=== PATIENT | female | born 1935 | race Two or more races ===

== ENCOUNTER 2016-04-07 12:45 | Outpatient (CLI) | payer MEDICARE, MEDICAID | END 2016-04-07 23:59 | disposition home or self-care (01) | LOC: VASLAB 12:45 | PROVIDERS: ATTEND Surgery Vascular Surgery | DX: Z48.812 Encounter for surgical aftercare following surgery on the circulatory system (principal); I87.2 Venous insufficiency (chronic) (peripheral) | CPT/HCPCS: G0463 ==

== ENCOUNTER 2016-04-14 12:34 | Outpatient (CLI) | payer MEDICARE, MEDICAID ==
[2016-04-14] MEDS ORDERED: DEXAMETHASONE SOD PHOSPHATE 4 MG/ML VIAL IV ONE (14:30)
[2016-04-14] MEDS ORDERED: BUPIVACAINE 0.5 % PF 150 MG/30 ML VIAL MC ONE (14:30)
[2016-04-14] MEDS ORDERED: ETHYL CHLORIDE SPRAY 1 EA BOTTLE TP ONE (14:30)
== END 2016-04-14 23:59 | disposition home or self-care (01) ==
LOC: WOU 12:34
PROVIDERS: ATTEND Podiatrist Foot & Ankle Surgery
PROC: 3E0U33Z Introduction of Anti-inflammatory into Joints, Percutaneous Approach (ICD-10-PCS; principal; 2016-04-14)
PROC: 3E0U3NZ Introduction of Analgesics, Hypnotics, Sedatives into Joints, Percutaneous Approach (ICD-10-PCS; principal; 2016-04-14)
DX: M25.571 Pain in right ankle and joints of right foot (principal); I83.893 Varicose veins of bilateral lower extremities with other complications; E11.9 Type 2 diabetes mellitus without complications; B35.1 Tinea unguium
CPT/HCPCS: 20605; J1100; J3490

== ENCOUNTER 2016-05-05 10:59 | Outpatient (CLI) | payer MEDICARE, MEDICAID | END 2016-05-05 23:59 | disposition home or self-care (01) | LOC: WOU 10:59 | PROVIDERS: ATTEND Podiatrist Foot & Ankle Surgery | DX: I83.893 Varicose veins of bilateral lower extremities with other complications (principal); M21.42 Flat foot [pes planus] (acquired), left foot; M21.41 Flat foot [pes planus] (acquired), right foot; M21.072 Valgus deformity, not elsewhere classified, left ankle; M21.071 Valgus deformity, not elsewhere classified, right ankle | CPT/HCPCS: G0463 ==

== ENCOUNTER 2016-06-23 11:30 | Outpatient (CLI) | payer MEDICARE, OTHER | END 2016-06-23 23:59 | disposition home or self-care (01) | LOC: WOU 11:30 | PROVIDERS: ATTEND Podiatrist Foot & Ankle Surgery | DX: Z09 Encounter for follow-up examination after completed treatment for conditions other than malignant neoplasm (principal); E11.40 Type 2 diabetes mellitus with diabetic neuropathy, unspecified; B35.1 Tinea unguium; M19.90 Unspecified osteoarthritis, unspecified site; I87.8 Other specified disorders of veins; G20 Parkinson's disease | CPT/HCPCS: G0463 ==

== ENCOUNTER 2016-09-01 10:50 | Outpatient (CLI) | payer MEDICARE, OTHER | END 2016-09-01 23:59 | disposition home or self-care (01) | LOC: WOU 10:50 | PROVIDERS: ATTEND Podiatrist Foot & Ankle Surgery | DX: Z09 Encounter for follow-up examination after completed treatment for conditions other than malignant neoplasm (principal); I80.3 Phlebitis and thrombophlebitis of lower extremities, unspecified; I83.891 Varicose veins of right lower extremity with other complications; E11.9 Type 2 diabetes mellitus without complications; Z79.84 Long term (current) use of oral hypoglycemic drugs | CPT/HCPCS: A6402; G0463 ==

== ENCOUNTER 2016-09-02 08:23 | Outpatient (CLI) | payer MEDICARE, OTHER | END 2016-09-02 23:59 | disposition home or self-care (01) | LOC: WOU 08:23 | PROVIDERS: ATTEND Specialist | DX: E11.628 Type 2 diabetes mellitus with other skin complications (principal); L02.413 Cutaneous abscess of right upper limb; I83.891 Varicose veins of right lower extremity with other complications; G20 Parkinson's disease; Z79.84 Long term (current) use of oral hypoglycemic drugs; Z79.899 Other long term (current) drug therapy | CPT/HCPCS: 11042; A6209; A6402; J3490 ==

== ENCOUNTER 2016-09-09 09:08 | Outpatient (CLI) | payer MEDICARE, OTHER | END 2016-09-09 23:59 | disposition home or self-care (01) | LOC: WOU 09:08 | PROVIDERS: ATTEND Specialist | DX: E11.628 Type 2 diabetes mellitus with other skin complications (principal); L02.413 Cutaneous abscess of right upper limb; G20 Parkinson's disease; I10 Essential (primary) hypertension; Z79.84 Long term (current) use of oral hypoglycemic drugs; Z79.899 Other long term (current) drug therapy | CPT/HCPCS: A6209; A6402; G0463 ==

== ENCOUNTER → 2016-09-15 | Outpatient (CLI) | payer MEDICARE, OTHER | END | disposition home or self-care (01) | LOC: WOU 10:57 | PROVIDERS: ATTEND Podiatrist Foot & Ankle Surgery | DX: L90.9 Atrophic disorder of skin, unspecified (principal); E11.628 Type 2 diabetes mellitus with other skin complications; I80.9 Phlebitis and thrombophlebitis of unspecified site; E11.51 Type 2 diabetes mellitus with diabetic peripheral angiopathy without gangrene; I83.811 Varicose veins of right lower extremity with pain; G20 Parkinson's disease; I10 Essential (primary) hypertension | CPT/HCPCS: A6402; G0463 ==

== ENCOUNTER 2016-09-16 09:03 | Outpatient (CLI) | payer MEDICARE, OTHER | END 2016-09-16 23:59 | disposition home or self-care (01) | LOC: WOU 09:03 | PROVIDERS: ATTEND Specialist | DX: E11.628 Type 2 diabetes mellitus with other skin complications (principal); G20 Parkinson's disease; I10 Essential (primary) hypertension; Z83.3 Family history of diabetes mellitus; Z82.49 Family history of ischemic heart disease and other diseases of the circulatory system | CPT/HCPCS: G0463 ==

== ENCOUNTER 2016-10-06 10:50 | Outpatient (CLI) | payer MEDICARE, OTHER | END 2016-10-06 23:59 | disposition home or self-care (01) | LOC: WOU 10:50 | PROVIDERS: ATTEND Podiatrist Foot & Ankle Surgery | DX: E11.622 Type 2 diabetes mellitus with other skin ulcer (principal); L97.311 Non-pressure chronic ulcer of right ankle limited to breakdown of skin; I83.893 Varicose veins of bilateral lower extremities with other complications; Z79.84 Long term (current) use of oral hypoglycemic drugs; Z79.899 Other long term (current) drug therapy | CPT/HCPCS: 11042; A6209; A6402 ==

== ENCOUNTER 2016-10-13 09:23 | Outpatient (CLI) | payer MEDICARE, OTHER ==
[2016-10-14] MEDS ORDERED: hydrALAZINE HCL IV 20 MG VIAL ONE (09:07)
== END 2016-10-13 23:59 | disposition home or self-care (01) ==
LOC: WOU 09:23
PROVIDERS: ATTEND Podiatrist Foot & Ankle Surgery
DX: E11.622 Type 2 diabetes mellitus with other skin ulcer (principal); L97.311 Non-pressure chronic ulcer of right ankle limited to breakdown of skin; I83.893 Varicose veins of bilateral lower extremities with other complications; Z79.84 Long term (current) use of oral hypoglycemic drugs; Z79.899 Other long term (current) drug therapy
CPT/HCPCS: 11042; A6209; A6402; J0360

== ENCOUNTER 2016-10-20 09:57 | Outpatient (CLI) | payer MEDICARE, OTHER | END 2016-10-20 23:59 | disposition home or self-care (01) | LOC: WOU 09:57 | PROVIDERS: ATTEND Podiatrist Foot & Ankle Surgery | DX: E11.51 Type 2 diabetes mellitus with diabetic peripheral angiopathy without gangrene (principal); E11.622 Type 2 diabetes mellitus with other skin ulcer; I83.013 Varicose veins of right lower extremity with ulcer of ankle; L97.311 Non-pressure chronic ulcer of right ankle limited to breakdown of skin; M21.071 Valgus deformity, not elsewhere classified, right ankle; I83.891 Varicose veins of right lower extremity with other complications; Z79.84 Long term (current) use of oral hypoglycemic drugs; Z79.899 Other long term (current) drug therapy | CPT/HCPCS: 11042; A6402 ==

== ENCOUNTER 2016-10-27 09:25 | Outpatient (CLI) | payer MEDICARE, OTHER | END 2016-10-27 23:59 | disposition home or self-care (01) | DX: I83.213 Varicose veins of right lower extremity with both ulcer of ankle and inflammation (principal); E11.622 Type 2 diabetes mellitus with other skin ulcer; L97.313 Non-pressure chronic ulcer of right ankle with necrosis of muscle; L02.413 Cutaneous abscess of right upper limb; E11.628 Type 2 diabetes mellitus with other skin complications; M21.071 Valgus deformity, not elsewhere classified, right ankle; L03.115 Cellulitis of right lower limb; E11.51 Type 2 diabetes mellitus with diabetic peripheral angiopathy without gangrene; Z79.84 Long term (current) use of oral hypoglycemic drugs; Z79.899 Other long term (current) drug therapy | CPT/HCPCS: 11043; 87070; 87075; 87077; A6402 ==

== ENCOUNTER 2016-11-03 09:20 | Outpatient (CLI) | payer MEDICARE, OTHER ==
[2016-11-03] MEDS ORDERED: PANT40TA2 PO (11:20)
[2016-11-03] MEDS ORDERED: METF500T4 PO (11:20)
[2016-11-03] MEDS ORDERED: AMLO5TAB2 PO (11:20)
[2016-11-03] MEDS ORDERED: APIX5TAB PO (11:20)
[2016-11-03] MEDS ORDERED: HYDR-552 PO (11:20)
[2016-11-03] MEDS ORDERED: FURO-145 PO ×2 (11:20)
[2016-11-03] MEDS ORDERED: DIGO125T PO (11:20)
[2016-11-03] MEDS ORDERED: BENA10TA2 PO (11:20)
[2016-11-03] MEDS ORDERED: METO-306 PO (11:20)
== END 2016-11-03 23:59 | disposition home or self-care (01) ==
LOC: WOU 09:20
PROVIDERS: ATTEND Podiatrist Foot & Ankle Surgery
DX: E11.51 Type 2 diabetes mellitus with diabetic peripheral angiopathy without gangrene (principal); E11.621 Type 2 diabetes mellitus with foot ulcer; L97.311 Non-pressure chronic ulcer of right ankle limited to breakdown of skin; I83.213 Varicose veins of right lower extremity with both ulcer of ankle and inflammation; M21.071 Valgus deformity, not elsewhere classified, right ankle; L03.115 Cellulitis of right lower limb; R11.2 Nausea with vomiting, unspecified; Z79.84 Long term (current) use of oral hypoglycemic drugs; Z79.899 Other long term (current) drug therapy
CPT/HCPCS: 82962; A6402; G0463

== ENCOUNTER 2016-11-03 10:29 | Inpatient (IN) | payer MEDICARE, OTHER ==
[~2016-11-03] VITALS: Ht 144.8 cm; Wt 70.3 kg
--- NOTE | 2016-11-03 07:30 | NUR ---
RECEIVED PT. AM AWAKE AND ORIENTED X1.NON VERBAL. IV INFUSING.APPEARS COMFORTABLE.
[2016-11-03] MEDS ORDERED: ONDANSETRON HCL/PF 4 MG/2 ML VIAL ONE (10:55)
[2016-11-03] MEDS ORDERED: ONDANSETRON HCL/PF 4 MG/2 ML VIAL IVP ONE (11:00)
[2016-11-03] MEDS ORDERED: IV NS 0.9% 1,000 ML BAG IV ONE (11:00)
[2016-11-03] MEDS ORDERED: VANCOMYCIN 1 GM in IV D5W 250 ML IV ONE (11:00)
[2016-11-03 11:18] LABS: BASOPHILS % (AUTO) 0.1 % (0.0-2.0); EOSINOPHILS % (AUTO) 0.1 % (0.0-6.0); HEMATOCRIT 47 % (33-45); HEMOGLOBIN 14.8 g/dL (11.5-14.8); LYMPHOCYTES # (AUTO) 0.8 /CMM (0.8-4.8); LYMPHOCYTES % (AUTO) 5.2 % (20.0-44.0); MEAN CORPUSCULAR HEMOGLOBIN 26 PG (26.0-33.0); MEAN CORPUSCULAR HGB CONC 31 g/dl (31.0-36.0); MEAN CORPUSCULAR VOLUME 82 fL (82-100); MONOCYTES # (AUTO) 0.9 /CMM (0.1-1.30); MONOCYTES % (AUTO) 6.1 % (2.0-12.0); NEUTROPHILS # (AUTO) 12.9 /CMM (1.8-8.9); NEUTROPHILS % (AUTO) 88.5 % (43.0-81.0); PLATELET COUNT (AUTO) 210 /CMM (150-450); RDW COEFFICIENT OF VARIATION 16.6 (11.5-15.0); RED BLOOD CELL COUNT(AUTO) 5.78 MIL/uL (4.0-5.2); WHITE BLOOD COUNT (AUTO) 14.6 K/uL (4.3-11.0)
[2016-11-03] MEDS ORDERED: FURO-145 PO ×2 (11:20)
[2016-11-03] MEDS ORDERED: METO-306 PO (11:20)
[2016-11-03] MEDS ORDERED: PANT40TA2 PO (11:20)
[2016-11-03] MEDS ORDERED: METF500T4 PO (11:20)
[2016-11-03] MEDS ORDERED: AMLO5TAB2 PO (11:20)
[2016-11-03] MEDS ORDERED: BENA10TA2 PO (11:20)
[2016-11-03] MEDS ORDERED: HYDR-552 PO (11:20)
[2016-11-03] MEDS ORDERED: APIX5TAB PO (11:20)
[2016-11-03] MEDS ORDERED: DIGO125T PO (11:20)
[2016-11-03 11:35] LABS: ALANINE AMINOTRANSFERASE 26 U/L (12-78); ALBUMIN 4.3 g/dL (3.4-5.0); ALKALINE PHOSPHATASE 99 U/L (46-116); ASPARTATE AMINOTRANSFERASE 41 U/L (15-37); BILIRUBIN,DIRECT 0.3 mg/dL (0.0-0.2); BILIRUBIN,TOTAL 1.4 mg/dL (0.2-1.0); CALCIUM, SERUM 9.8 mg/dL (8.5-10.1); CARBON DIOXIDE 27 mmol/L (21-32); CHLORIDE 95 mmol/L (98-107); CREATININE 0.9 mg/dL (0.6-1.3); GLUCOSE 141 mg/dL (74-106); INR 1.06 (0.87-1.13); POTASSIUM 4.4 mmol/L (3.5-5.1); PROTHROMBIN TIME 11.4 SECS (9.5-12.7); SODIUM SERUM 132 mmol/L (136-145); UREA NITROGEN, BLOOD 11 mg/dL (7-18)
--- NOTE | 2016-11-03 12:15 | NUR ---
CALLED NURSING AUTO SERVICE REPRESENTATIVE FOR M/S BED
--- NOTE | 2016-11-03 12:19 | NUR ---
PAGED DR ANTONETTE FROST FOR ADMISSION
--- NOTE | 2016-11-03 13:03 | NUR ---
PATIENT TRANSPORTED TO , [facility]
--- NOTE | 2016-11-03 13:20 | NUR ---
PT. BROUGHT UP FROM ER.WITH ASSIST GOT PT. IN TO BED CAN WALK WITH WALKER. ORIENTED TO RM.FAMILY AT BEDSIDE.VS STABLE.NO COMPLAINTS OFFERED.PT. ROMANSH SPEAKING.
[2016-11-03 14:00] VITALS: BP 145/97
[2016-11-03] MEDS ORDERED: DEXTROSE 50%-WATER 50 ML DISP.SYRIN IV PRN (15:30)
[2016-11-03] MEDS ORDERED: *INSULIN ASPART NOVOLOG 100 UNIT/ML CARTRIDGE SQ PRN (15:30)
[2016-11-03] MEDS ORDERED: ACETAMINOPHEN 325 MG TABLET PO PRN (15:30)
--- NOTE | 2016-11-03 15:40 | NUR ---
SONY OGLESBY IN TO SEE PT. ORDERS GIVEN.TUBE FEEDING HOOKED UP AND RATE SET AT 20 ML PER HR.SCANT SEROUS SANG. DRAINAGE AT G-TUBE SITE.IV STILL INFUSING,JIG OPERATOR IN EARLIER TO SE PT. Addendum: 11/03/16 at 2013 by ANN PRIEST RN ABOVE INFO ON INCORRECT PT.
[2016-11-03] MEDS ORDERED: FEE PK DOSING 1 MIN EA MC ONE (15:46)
[2016-11-03 16:00] VITALS: BP 158/96
--- NOTE | 2016-11-03 16:00 | NUR ---
BGL DONE AT THIS TIME PT. INFORMED DTRS SHE FELT WOOSY AND WEAK.BGL 142.
--- NOTE | 2016-11-03 16:05 | NUR ---
MED. FOR HEADACHE AND FOOT PAIN WITH TYLENOL 650 MG PO.
--- NOTE | 2016-11-03 16:40 | NUR ---
POTASSIUM REPLACEMENT DONE PER G-TUBE. Addendum: 11/03/16 at 2013 by ANN PRIEST RN ABOVE INFO ON INCORRECT PT.
[2016-11-03] MEDS: BLOOD SUGAR DIAGNOSTIC 1 EACH STRIP IN SCH ×2 (17:30→22:00)
--- NOTE | 2016-11-03 18:30 | NUR ---
PHOTO DONE OF RT. ANKLE.WD CULTURE DONE AND LAB CONTACTED.FAMILY AT BEDSIDE. DR. Ankush FROST IN TO SEE PT.FURTHER ORDERS GIVEN AND MEDS RECONCILED.
[2016-11-03] MEDS ORDERED: ZOLPIDEM TARTRATE 5 MG TABLET PO PRN (19:00)
[2016-11-03] MEDS ORDERED: ONDANSETRON HCL/PF 4 MG/2 ML VIAL IV PRN (19:00)
--- NOTE | 2016-11-03 19:30 | NUR ---
ENDORSED TO KRIS RN NEED OF URINE.
--- NOTE | 2016-11-03 19:35 | NUR ---
MS RN NOTES RECEIVED LAYING COMFORTABLY ON BED,SPEAK ERITREAN,NO SOB,SALINE LOCK RIGHT AC INTACT AND PATENT.RIGHT FOOT ANKLE DRESSING INTACT AND DRY.DENIES PAIN AT THE MOMENT.CALL LIGHT IN REACH,NEEDS ANTICIPATED.
[2016-11-03 20:00] VITALS: BP_SYST 153; BP_DIAS 84; BP_DIAS 89
[2016-11-03] MEDS: AMLODIPINE BESYLATE 5 MG TABLET PO SCH (22:00)
--- NOTE | 2016-11-03 22:00 | NUR ---
MS RN NOTES ACCU-CHECK BLOOD SUGAR CHECK 127,NO INSULIN COVERAGE.
[2016-11-03] MEDS: VANCOMYCIN 0.75 GM in IV D5W 250 ML IV SCH (23:11)
--- NOTE | 2016-11-04 04:00 | NUR ---
MS RN NOTES DRESSING CHANGE DONE ON RIGHT ANKLE ,CLEANSE WITH NS,APPLIED HYDROGEL AND COVERED WITH MEPILEX,SECURED WITH KERLIX,DENIES PAIN
[2016-11-04 04:53] LABS: APPEARANCE,URINE CLEAR (CLEAR); BILIRUBIN,URINE NEGATIVE (NEGATIVE); BLOOD, URINE TRACE-INTA Ery/uL (NEGATIVE); COLOR,URINE YELLOW (YELLOW); KETONES,URINE NEGATIVE (NEGATIVE); LEUKOCYTE ESTERASE ,URINE TRACE (NEGATIVE); NITRITE, URINE NEGATIVE (NEGATIVE); PH,URINE 6.5 (5.0-8.0); PROTEIN,URINE 2+ mg/dl (NEGATIVE); UGLUCOSE NEGATIVE (NEGATIVE)
[2016-11-04] MEDS: BLOOD SUGAR DIAGNOSTIC 1 EACH STRIP IN SCH ×4 (05:26→21:31)
[2016-11-04] MEDS: INSULIN ASPART HUMALOG/NOVOLOG 100 UNIT/ML CARTRIDGE SQ PRN (05:30)
[2016-11-04 05:34] LABS: RBC,URINE 0-2 /HPF (0-2)
[2016-11-04 05:35] LABS: BACTERIA,URINE 1+ /HPF (None Seen); SQUAMOUS EPITHELIAL CELL,UR Few /HPF (None Seen)
--- NOTE | 2016-11-04 05:43 | NUR ---
MS RN NOTES ACCU-CHECK BLOOD SUGAR CHECK 138,COVERED WITH NOVOLOG 2 UNITS PER SLIDING SCALE.
--- NOTE | 2016-11-04 06:07 | NUR ---
MS RN NOTES SLEPT WELL AT NIGHT,ABLE TO AMBULATE TO THE THE BATHROOM WITH WALKER ASSISTED BY SHELLIE SWAIN.URINE FOR CULTURE AND ANALYSIS COLLECTED,SENT TO LAB. 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
[2016-11-04] MEDS ORDERED: Z GUARD REMEDY 2 OZ OINT TP PRN (07:00)
[2016-11-04 07:14] LABS: BASOPHILS % (AUTO) 0.2 % (0.0-2.0); EOSINOPHILS # (AUTO) 0.1 /CMM (0.0-0.7); EOSINOPHILS % (AUTO) 0.4 % (0.0-6.0); HEMATOCRIT 43 % (33-45); HEMOGLOBIN 13.8 g/dL (11.5-14.8); MEAN CORPUSCULAR HEMOGLOBIN 26 PG (26.0-33.0); MEAN CORPUSCULAR HGB CONC 32 g/dl (31.0-36.0); MEAN CORPUSCULAR VOLUME 81 fL (82-100); MONOCYTES # (AUTO) 1.2 /CMM (0.1-1.30); MONOCYTES % (AUTO) 9.3 % (2.0-12.0); NEUTROPHILS # (AUTO) 10.7 /CMM (1.8-8.9); NEUTROPHILS % (AUTO) 82.1 % (43.0-81.0); PLATELET COUNT (AUTO) 202 /CMM (150-450); RDW COEFFICIENT OF VARIATION 15.6 (11.5-15.0); RED BLOOD CELL COUNT(AUTO) 5.24 MIL/uL (4.0-5.2)
[2016-11-04 07:36] LABS: ALANINE AMINOTRANSFERASE 21 U/L (12-78); ALBUMIN 3.4 g/dL (3.4-5.0); ALKALINE PHOSPHATASE 79 U/L (46-116); ASPARTATE AMINOTRANSFERASE 29 U/L (15-37); CALCIUM, SERUM 8.4 mg/dL (8.5-10.1); CARBON DIOXIDE 26 mmol/L (21-32); CHLORIDE 97 mmol/L (98-107); CREATININE 0.7 mg/dL (0.6-1.3); GLUCOSE 129 mg/dL (74-106); POTASSIUM 4.2 mmol/L (3.5-5.1); SODIUM SERUM 130 mmol/L (136-145); TOTAL PROTEIN, SERUM 7.3 g/dL (6.4-8.2); UREA NITROGEN, BLOOD 10 mg/dL (7-18)
[2016-11-04 08:00] VITALS: BP 164/96
[2016-11-04] MEDS: HYDROCODONE/APAP 5/325MG 1 EACH TABLET PO PRN ×2 (08:10→21:32)
[2016-11-04] MEDS: PANTOPRAZOLE 40 MG TABLET.DR PO SCH (08:10)
--- NOTE | 2016-11-04 08:44 | NUR ---
WOUND CARE CONSULT WOUND CONSULT RECEIVED. WOUND CARE WILL DEFER TREATMENT PLAN TO ELECTRIC METER INSTALLER HELPER DR ESCALERA THIS PATIENT IS HIS CLINIC PATIENT. PATIENT WITH CURRENT EMY AT 19 AT THIS TIME. WILL SEE PRN. DISCUSSED WITH STAFF NURSE.
[2016-11-04] MEDS: DIGOXIN 0.125 MG TABLET PO SCH (09:21)
[2016-11-04] MEDS: BENAZEPRIL HCL 10 MG TABLET PO SCH (09:22)
[2016-11-04] MEDS: APIXABAN 5 MG TABLET PO SCH ×2 (09:22→18:04)
[2016-11-04] MEDS: FUROSEMIDE 20 MG TABLET PO SCH (09:22)
[2016-11-04] MEDS: HYDROGEL DRESSING 90 GM TUBE TP SCH (09:24)
--- NOTE | 2016-11-04 10:00 | NUR ---
SCANT AMT. SEROUS DRAINAGE ON RT, ANKLE DRSG.
--- NOTE | 2016-11-04 12:00 | NUR ---
FAMILY IN TO VISIT ALL DAY.
[2016-11-04] MEDS: VANCOMYCIN 0.75 GM in IV D5W 250 ML IV SCH ×2 (13:09→22:56)
[2016-11-04 16:00] VITALS: BP 131/77
--- NOTE | 2016-11-04 18:00 | NUR ---
DR. Ankush FROST IN TO SEE PT. WELL IRIS SALAMANCA NURSE.
[2016-11-04] MEDS ORDERED: FUROSEMIDE 20 MG TABLET PO SCH (18:30)
[2016-11-04 19:59] VITALS: BP 144/58
[2016-11-04 20:00] VITALS: BP 144/58
--- NOTE | 2016-11-04 20:00 | NUR ---
RN NOTES: RECEIVED REPORT FROM ANN ZIMMERMAN, PT IN BED, ON ISOLATION FOR HX MRSA WOUND, PT A/O X3 [place] SPEAKING, ON RA RESPIRATION EVEN AND UNLABORED, RIGHT AC IV ACCESS PATENT AND FLUSHING WELL, ON HL. NOTED IVB VANCOMYCIN NOT INFUSING, ITS FROM 1300, INFORMED RN ANN ABOUT IT, SAFETY PRECAUTIONS FOR FALL INITIATED CALL LIGHT IN REACH, WILL CONTINUE TO MONITOR
[2016-11-04] MEDS: CEFTRIAXONE 1 G in IV D5W 50 ML IV SCH (20:35)
--- NOTE | 2016-11-04 20:38 | NUR ---
ROCEPHIN: ADMINISTERED MEDICATION AT THIS TIME, CALLED PHARMACY ABOUT VANCOMYCIN, RECEIVED PT WITH VANCOMYCIN STILL FULL, INFORMED DAY RN ANN, STATED SHE DOESNT KNOW THAT THE PT'S IV WAS STOP, OR NOT INFUSED,RESTARTED VANCOMYCIN, THEN CALL PHARMACY, PER PHARMACY TO STOP THE VANCO AT THIS TIME AND JUST ADMINISTER THE ROCEPHIN AND VANCO AT RESPECTIVE TIME,
--- NOTE | 2016-11-04 20:50 | NUR ---
STOPPED INFUSING ROCEPHIN AT THIS TIME, PT'S IV NOTED TO BE INFILTRATED, INFORMED COMMAND POST SUPERINTENDENTELIZ CARRILLO PT HAS ORDER FOR MIDLINE INSERTION, PT IS HARDSTICK AND WILL BE NEEDING IV BEFORE DC IN AM PLUS THE IV ATB FOR TONIGHT, WILL INFORM RN REYNALDO RUFF
--- NOTE | 2016-11-04 21:00 | NUR ---
RN NOTES: RESULT OF WOUND CULTURE WITH GS CAME BACK AND ITS NO GROWTH NO INDICATION FOR ISOLATION, ISOLATION FOR THE PT WAS REMOVED, MONOMER PURIFICATION OPERATOR LORENA DELVALLE
--- NOTE | 2016-11-04 21:33 | NUR ---
PRN NORCO: PT C/O RIGHT ARM PAIN REQUESTING FOR NORCO, PRN NORCO 5/325 MG TAB PO ADMINISTERED TO THE PT AT THIS TIME, WILL CONTINUE TO MONITOR AND REASSESS
--- NOTE | 2016-11-04 21:39 | NUR ---
ACCU CHECK: CHECK PT'S BLOOD SUGAR AND REVEAL 110, NO INSULIN COVERAGE GIVEN PER SLIDING SCALE, WILL CONTINUE TO MONITOR AND REASSESS
--- NOTE | 2016-11-04 21:40 | NUR ---
PRELIM BLOOD CULTURE RESULT: RECEIVED CALL FROM NOE CARTAGENA FROM LAB, PT PRELIMINARY RESULT OF BLOOD CULTURE IS GRAM POSITIVE COCCI IN CLUSTER, PT ALREADY ON ROCEPHIN AND VANCOMYCIN IV, LEAD CUSTODIAN LORENA MADE AWARE
--- NOTE | 2016-11-04 21:47 | NUR ---
RN NOTES: INFORMED RN SUP SPEEDY REGARDING MIDLINE INSERTION, PER RN SUP THERE'S NOBODY TO DO IT TONIGHT, IT WILL BE DONE IN AM TOMORROW
[2016-11-04] MEDS: AMLODIPINE BESYLATE 5 MG TABLET PO SCH (22:00)
--- NOTE | 2016-11-04 22:20 | NUR ---
RN NOTES: NEW IV INSERTED AT LEFT HAND G 22, CONNECTED BACK TO IV ATB, ROCEPHINE RUNNING AT 100ML/HR
[2016-11-04 22:21] VITALS: BP 121/67
--- NOTE | 2016-11-04 22:23 | NUR ---
RN NOTES: NORVASC 5MG NOT ADMINISTERED AT THIS TIME, PT'S BP 121/67, WNL, PT DOESNT WANT TO TAKE HER BP MEDS SHE STATED ITS NORMAL
--- NOTE | 2016-11-05 06:20 | NUR ---
DEBRIDEMENT: DR ESCALERA CAME TO SEE THE PT, STATED TO OBTAIN A CONSENT FOR RIGHT ANKLE DEBRIDEMENT, AND PREPARE SCALPEL #15 AND KERLIX, 4X4 GAUZE. AFTER EXPLAINING TO THE PT, PT AGREE AND WILFULLY GIVE HER FULL CONSENT WITH THE PROCEDURE, DEBRIDEMENT PERFORMED BY DR ESCALERA AT BED SIDE, LLE DRESSED WITH KERLIX AND OFFLOADED ON PILLOW
[2016-11-05] MEDS: INSULIN ASPART HUMALOG/NOVOLOG 100 UNIT/ML CARTRIDGE SQ PRN ×2 (06:42→18:09)
[2016-11-05] MEDS: BLOOD SUGAR DIAGNOSTIC 1 EACH STRIP IN SCH ×4 (06:42→21:27)
--- NOTE | 2016-11-05 06:42 | NUR ---
ACCU CHECK: BLOOD SUGAR CHECK AND REVEAL 116, NO INSULIN COVERAGE GIVEN PER SLIDING SCALE, WILL MONITOR PT FOR ANY S/S OF HYPOGLYCEMIA
--- NOTE | 2016-11-05 06:53 | NUR ---
RN CLOSING NOTES: PT IN BED, ON 2L VIA NC, RESPIRATION EVEN AND UNLABORED, LEFT HAND IV ACCESS REMAINS PATENT AND FLUSHING WELL,ON HL. VS REMAINS STABLE, RIGHT LEG ELEVATED ON PILLOWS. FOR MIDLINE INSERTION TODAY, RN SUP SPEEDY AWARE SINCE LAST NIGHT. VS REMAINS STABLE, NEEDS ATTENDED. SAFETY PRECAUTIONS FOR FALL REMAINS ENGAGED, CALL LIGHT IN REACH, WILL ENDORSE TO DAY RN FOR JESSE.
[2016-11-05 07:09] LABS: BASOPHILS # (AUTO) 0.1 /CMM (0.0-0.2); BASOPHILS % (AUTO) 0.6 % (0.0-2.0); EOSINOPHILS # (AUTO) 0.2 /CMM (0.0-0.7); EOSINOPHILS % (AUTO) 1.6 % (0.0-6.0); HEMATOCRIT 42 % (33-45); HEMOGLOBIN 13.5 g/dL (11.5-14.8); LYMPHOCYTES # (AUTO) 1.2 /CMM (0.8-4.8); LYMPHOCYTES % (AUTO) 13.4 % (20.0-44.0); MEAN CORPUSCULAR HEMOGLOBIN 26 PG (26.0-33.0); MEAN CORPUSCULAR HGB CONC 32 g/dl (31.0-36.0); MEAN CORPUSCULAR VOLUME 81 fL (82-100); MONOCYTES % (AUTO) 11.5 % (2.0-12.0); NEUTROPHILS # (AUTO) 6.7 /CMM (1.8-8.9); NEUTROPHILS % (AUTO) 72.9 % (43.0-81.0); PLATELET COUNT (AUTO) 188 /CMM (150-450); RDW COEFFICIENT OF VARIATION 16.3 (11.5-15.0); RED BLOOD CELL COUNT(AUTO) 5.16 MIL/uL (4.0-5.2); WHITE BLOOD COUNT (AUTO) 9.2 K/uL (4.3-11.0)
[2016-11-05 07:23] LABS: CALCIUM, SERUM 8.4 mg/dL (8.5-10.1); CARBON DIOXIDE 26 mmol/L (21-32); CHLORIDE 98 mmol/L (98-107); CREATININE 0.9 mg/dL (0.6-1.3); GLUCOSE 107 mg/dL (74-106); MAGNESIUM 1.9 mg/dL (1.8-2.4); SODIUM SERUM 132 mmol/L (136-145); UREA NITROGEN, BLOOD 14 mg/dL (7-18)
--- NOTE | 2016-11-05 07:55 | NUR ---
RN NOTES RECEIVED PT. PT IS STABLE AND AWAKE IN BED RESTING. A/O X 3, TONGAN SPEAKING ONLY. NO S/S OF DISTRESS. PER REPORT PT EXPERIENCED DROP IN O2 SAT AT 92-93% AT NIGHT ON RA, PT IS CURRENTLY ON NC AT 2L/MIN. PT HAS NO C/O PAIN AT THIS MOMENT. RIGHT ANKLE DEBRIDEMENT PERFORMED THIS AM 11/05/16. PT IS AWAITING MIDLINE PLACEMENT, AND CASE MANAGEMENT F/U FOR HOME HEALTH PLACEMENT. PT TO BE D/C HOME WITH MIDLINE FOR VANCO THERAPY. IV ACCESS LOCATED ON LEFT HAND, 22G SL. ENVIRONMENTAL SAFETY CHECK PERFORMED, CALL LIGHT WITHIN REACH. WILL CONTINUE TO MONITOR.
[2016-11-05 08:00] VITALS: BP 153/85
[2016-11-05] MEDS: BENAZEPRIL HCL 10 MG TABLET PO SCH (08:39)
[2016-11-05] MEDS: FUROSEMIDE 20 MG TABLET PO SCH (08:39)
[2016-11-05] MEDS: HYDROCODONE/APAP 5/325MG 1 EACH TABLET PO PRN ×2 (08:40→10:00)
[2016-11-05] MEDS: PANTOPRAZOLE 40 MG TABLET.DR PO SCH (08:41)
[2016-11-05] MEDS: DIGOXIN 0.125 MG TABLET PO SCH (08:41)
[2016-11-05] MEDS: APIXABAN 5 MG TABLET PO SCH ×2 (08:41→18:03)
[2016-11-05] MEDS: HYDROGEL DRESSING 90 GM TUBE TP SCH (08:46)
--- NOTE | 2016-11-05 08:47 | NUR ---
RN NOTES MIDLINE INSERTION PERFORMED ON JUAN. WELL TOLERATED BY PT. DAUGHTER TO BE INFORMED. WILL F/U.
[2016-11-05] MEDS: VANCOMYCIN 0.75 GM in IV D5W 250 ML IV SCH (12:00)
[2016-11-05 14:13] VITALS: BP 130/75
[2016-11-05 16:00] VITALS: BP 140/79
[2016-11-05] MEDS: LACTOBACILLUS RHAMNOSUS GG 1 EACH CAP.SPRINK PO SCH (18:03)
--- NOTE | 2016-11-05 19:03 | NUR ---
RN NOTES PT IS IN HER BED RESTING COMFORTABLY. NO S/S OF DISTRESS OR SOB. PT HAS NO CURRENT C/O PAIN. MD AND CASE MANAGEMENT INFORMED OF HOME HEALTH'S INABILITY TO TAKE PT UPON DISCHARGE. SAFETY MEASURES IN PLACE, CALL LIGHT WITHIN REACH. WILL ENDORSE TO RN INTERVENTIONAL FOR JESSE.
[2016-11-05 20:00] VITALS: BP 125/77
[2016-11-05] MEDS: CEFTRIAXONE 1 G in IV D5W 50 ML IV SCH (20:07)
[2016-11-05] MEDS: AMLODIPINE BESYLATE 5 MG TABLET PO SCH (21:27)
[2016-11-06] MEDS: VANCOMYCIN 0.75 GM in IV D5W 250 ML IV SCH ×2 (00:04→11:48)
--- NOTE | 2016-11-06 06:39 | NUR ---
MS RN NOTES AWAKE & RESPONSIVE. NOT IN ANY DISTRESS. NO SOB NOTED. DENIES ANY PAIN OR DISCOMFORT AT THIS TIME. WITH IV-HL PATENT & INTACT. MONITORED ACCORDINGLY. CALL LIGHT WITHIN REACH. BED IN LOWEST POSITION. SR UP X 3 WITH BED ALARM ON FOR SAFETY. WILL ENDORSE TO NEXT SHIFT.
--- NOTE | 2016-11-06 07:30 | NUR ---
RN OPENING NOTES RECEIVED PATIENT IN BED ASLEEP, AROUSES EASILY. NO ACUTE DISTRESS, NO SOB NOTED. DENIES PAIN OR DISCOMFORT AT THIS TIME. IV SITE INTACT AND PATENT. KEPT PATIENT SAFE AND COMFORTABLE. BED LOCKED AND IN LOWEST POSITION, SIDERAILS UPX2. CALL LIGHT IN REACH. WILL CONTINUE TO MONITOR ACCORDINGLY.
[2016-11-06] MEDS: BLOOD SUGAR DIAGNOSTIC 1 EACH STRIP IN SCH ×2 (07:38→11:49)
[2016-11-06 07:53] LABS: CALCIUM, SERUM 8.8 mg/dL (8.5-10.1); CARBON DIOXIDE 28 mmol/L (21-32); CHLORIDE 102 mmol/L (98-107); CREATININE 0.9 mg/dL (0.6-1.3); GLUCOSE 118 mg/dL (74-106); POTASSIUM 4.3 mmol/L (3.5-5.1); SODIUM SERUM 137 mmol/L (136-145); UREA NITROGEN, BLOOD 14 mg/dL (7-18)
[2016-11-06 08:00] VITALS: BP_SYST 141; BP_DIAS 70; BP_DIAS 97
[2016-11-06] MEDS: PANTOPRAZOLE 40 MG TABLET.DR PO SCH (08:13)
[2016-11-06] MEDS: FUROSEMIDE 20 MG TABLET PO SCH (08:14)
[2016-11-06] MEDS: LACTOBACILLUS RHAMNOSUS GG 1 EACH CAP.SPRINK PO SCH ×2 (08:14→17:38)
[2016-11-06] MEDS: DIGOXIN 0.125 MG TABLET PO SCH (08:15)
[2016-11-06] MEDS: BENAZEPRIL HCL 10 MG TABLET PO SCH (08:16)
[2016-11-06] MEDS: APIXABAN 5 MG TABLET PO SCH ×2 (08:16→17:37)
[2016-11-06] MEDS: HYDROGEL DRESSING 90 GM TUBE TP SCH (08:18)
[2016-11-06 09:57] LABS: BASOPHILS % (AUTO) 0.2 % (0.0-2.0); EOSINOPHILS # (AUTO) 0.2 /CMM (0.0-0.7); EOSINOPHILS % (AUTO) 1.3 % (0.0-6.0); HEMATOCRIT 46 % (33-45); HEMOGLOBIN 14.5 g/dL (11.5-14.8); LYMPHOCYTES # (AUTO) 1.2 /CMM (0.8-4.8); LYMPHOCYTES % (AUTO) 9.2 % (20.0-44.0); MEAN CORPUSCULAR HEMOGLOBIN 26 PG (26.0-33.0); MEAN CORPUSCULAR HGB CONC 32 g/dl (31.0-36.0); MEAN CORPUSCULAR VOLUME 83 fL (82-100); MONOCYTES % (AUTO) 7.5 % (2.0-12.0); NEUTROPHILS # (AUTO) 11.2 /CMM (1.8-8.9); NEUTROPHILS % (AUTO) 81.8 % (43.0-81.0); PLATELET COUNT (AUTO) 223 /CMM (150-450); RED BLOOD CELL COUNT(AUTO) 5.57 MIL/uL (4.0-5.2); WHITE BLOOD COUNT (AUTO) 13.6 K/uL (4.3-11.0)
[2016-11-06] MEDS ORDERED: METOPROLOL SUCCINATE 50 MG TAB.SR.24H PO SCH (13:00)
[2016-11-06 16:00] VITALS: BP 137/82
[2016-11-06 16:11] VITALS: BP 137/82
[2016-11-06] MEDS ORDERED: diphenhydrAMINE HCL ELIX 25 MG/10 ML UDC PO PRN (16:30)
[2016-11-06] MEDS ORDERED: FLUOCINONIDE 0.05% CREAM 60 GM TUBE TP SCH ×2 (17:00)
--- NOTE | 2016-11-06 18:13 | NUR ---
RN NOTES DISCHARGE PATIENT IN STABLE CONDITION ACCOMPANIED BY FAMILY AND MARISOL HENSLEY. DISCHARGE INSTRUCTIONS/EXITCARE/TEACHING DONE, PAPERWORK GIVEN TO DAUGHTER. DISCHARGE PATIENT WITH MIDLINE INTACT AND PATENT, NO REDNESS, NO INFILTRATION NOTED, SINCE DR FROST ORDERED IV ANTIBIOTICS TO BE GIVEN AT HOME VIA HOMEHEALTH NURSE.
[2016-11-07] MEDS ORDERED: VANCOMYCIN 0.75 GM in IV D5W 250 ML IV SCH (05:00)
== END 2016-11-06 18:04 | disposition home health service (06) | DRG 988 ==
LOC: ER 10:35 → MED 12:58
PROVIDERS: ADMIT Internal Medicine; ATTEND Internal Medicine
PROC: 0MBQ0ZZ Excision of Right Ankle Bursa and Ligament, Open Approach (ICD-10-PCS; principal; 2016-11-03)
PROC: 05H533Z Insertion of Infusion Device into Right Subclavian Vein, Percutaneous Approach (ICD-10-PCS; 2016-11-05)
DX: E11.621 Type 2 diabetes mellitus with foot ulcer (principal); L03.115 Cellulitis of right lower limb; L97.519 Non-pressure chronic ulcer of other part of right foot with unspecified severity; L97.319 Non-pressure chronic ulcer of right ankle with unspecified severity; E11.51 Type 2 diabetes mellitus with diabetic peripheral angiopathy without gangrene; I11.0 Hypertensive heart disease with heart failure; I50.32 Chronic diastolic (congestive) heart failure; I48.91 Unspecified atrial fibrillation; N39.0 Urinary tract infection, site not specified; I83.213 Varicose veins of right lower extremity with both ulcer of ankle and inflammation; E11.622 Type 2 diabetes mellitus with other skin ulcer; I25.10 Atherosclerotic heart disease of native coronary artery without angina pectoris; E78.5 Hyperlipidemia, unspecified; Z79.01 Long term (current) use of anticoagulants; Z87.440 Personal history of urinary (tract) infections; M19.90 Unspecified osteoarthritis, unspecified site; D72.829 Elevated white blood cell count, unspecified; B96.89 Other specified bacterial agents as the cause of diseases classified elsewhere; M21.079 Valgus deformity, not elsewhere classified, unspecified ankle; D64.9 Anemia, unspecified; B95.62 Methicillin resistant Staphylococcus aureus infection as the cause of diseases classified elsewhere; Z79.4 Long term (current) use of insulin
CPT/HCPCS: 36415; 36569; 73610-TC; 80048-TC; 80053-TC; 80076-TC; 80202-TC; 81000-TC; 82962-TC; 83605-TC; 83735-TC; 85025-TC; 85730-TC; 87040-TC; 87070-TC; 87081-TC; 87086-TC; 87186-TC; A4606; A6248; A6402; J0696; J1815; J2405; J3370; J7030; J7050; J7060; Q0163; Z7610

== ENCOUNTER 2016-11-17 14:25 | Outpatient (CLI) | payer MEDICARE, OTHER ==
[~2016-11-17 14:25] MED LIST: AMLO5TAB2 PO; APIX5TAB PO; BENA10TA2 PO; DIGO125T PO; FURO-145 PO; HYDR-552 PO; METF500T4 PO; METO-306 PO; PANT40TA2 PO
== END 2016-11-17 23:59 | disposition home or self-care (01) ==
LOC: WOU 14:25
PROVIDERS: ATTEND Podiatrist Foot & Ankle Surgery
DX: E11.622 Type 2 diabetes mellitus with other skin ulcer (principal); I83.013 Varicose veins of right lower extremity with ulcer of ankle; L97.311 Non-pressure chronic ulcer of right ankle limited to breakdown of skin; I83.891 Varicose veins of right lower extremity with other complications; L03.116 Cellulitis of left lower limb; Z79.84 Long term (current) use of oral hypoglycemic drugs; Z79.899 Other long term (current) drug therapy
CPT/HCPCS: 11042; A6402

== ENCOUNTER 2016-11-24 11:00 | Outpatient (CLI) | payer MEDICARE, OTHER | END 2016-11-24 23:59 | disposition home or self-care (01) | LOC: WOU 11:00 | PROVIDERS: ATTEND Podiatrist Foot & Ankle Surgery | DX: E11.622 Type 2 diabetes mellitus with other skin ulcer (principal); L97.311 Non-pressure chronic ulcer of right ankle limited to breakdown of skin; E11.51 Type 2 diabetes mellitus with diabetic peripheral angiopathy without gangrene; I83.891 Varicose veins of right lower extremity with other complications; I83.213 Varicose veins of right lower extremity with both ulcer of ankle and inflammation; L03.115 Cellulitis of right lower limb | CPT/HCPCS: 11042; A6402 ==

== ENCOUNTER 2016-12-01 11:00 | Outpatient (CLI) | payer MEDICARE, OTHER | END 2016-12-01 23:59 | disposition home or self-care (01) | LOC: WOU 11:00 | PROVIDERS: ATTEND Podiatrist Foot & Ankle Surgery | DX: E11.59 Type 2 diabetes mellitus with other circulatory complications (principal); I83.013 Varicose veins of right lower extremity with ulcer of ankle; L97.311 Non-pressure chronic ulcer of right ankle limited to breakdown of skin; M21.071 Valgus deformity, not elsewhere classified, right ankle; I83.891 Varicose veins of right lower extremity with other complications; Z79.84 Long term (current) use of oral hypoglycemic drugs; Z79.899 Other long term (current) drug therapy | CPT/HCPCS: 11042; A6402 ==

== ENCOUNTER 2016-12-15 10:50 | Outpatient (CLI) | payer MEDICARE, OTHER | END 2016-12-15 23:59 | disposition home or self-care (01) | LOC: WOU 10:50 | PROVIDERS: ATTEND Podiatrist Foot & Ankle Surgery | DX: E11.622 Type 2 diabetes mellitus with other skin ulcer (principal); L97.311 Non-pressure chronic ulcer of right ankle limited to breakdown of skin; I83.899 Varicose veins of unspecified lower extremity with other complications; L90.9 Atrophic disorder of skin, unspecified | CPT/HCPCS: 11042; A6402 ==

== ENCOUNTER 2016-12-22 11:20 | Outpatient (CLI) | payer MEDICARE, OTHER | END 2016-12-22 23:59 | disposition home or self-care (01) | LOC: WOU 11:20 | PROVIDERS: ATTEND Podiatrist Foot & Ankle Surgery | DX: I83.899 Varicose veins of unspecified lower extremity with other complications (principal); E11.9 Type 2 diabetes mellitus without complications; Z79.84 Long term (current) use of oral hypoglycemic drugs | CPT/HCPCS: G0463 ==

== ENCOUNTER 2017-01-12 10:50 | Outpatient (CLI) | payer MEDICARE, OTHER | END 2017-01-12 23:59 | disposition home or self-care (01) | LOC: WOU 10:50 | PROVIDERS: ATTEND Podiatrist Foot & Ankle Surgery | DX: B35.1 Tinea unguium (principal); L60.2 Onychogryphosis; I83.899 Varicose veins of unspecified lower extremity with other complications | CPT/HCPCS: G0463 ==

== ENCOUNTER 2020-07-16 10:10 | Outpatient (CLI) | payer MEDICARE, OTHER ==
[~2020-07-16 10:10] MED LIST changes: +AMLO-212 PO; -AMLO5TAB2 PO; -BENA10TA2 PO; +BENA10TA74 PO; +HYDR-4384 PO; -HYDR-552 PO; +METF-440 PO; -METF500T4 PO; -METO-306 PO; +METO-358 PO
== END 2020-07-16 23:59 | disposition home or self-care (01) ==
LOC: WOU 10:10
PROVIDERS: ATTEND Podiatrist Foot & Ankle Surgery
DX: I87.2 Venous insufficiency (chronic) (peripheral) (principal); R60.0 Localized edema; B35.1 Tinea unguium; R26.89 Other abnormalities of gait and mobility; E11.9 Type 2 diabetes mellitus without complications; Z79.84 Long term (current) use of oral hypoglycemic drugs; M79.675 Pain in left toe(s); M79.674 Pain in right toe(s)
CPT/HCPCS: G0463

== ENCOUNTER 2020-09-17 10:20 | Outpatient (CLI) | payer MEDICARE, OTHER | END 2020-09-17 23:59 | disposition home or self-care (01) | LOC: WOU 10:20 | PROVIDERS: ATTEND Podiatrist Foot & Ankle Surgery | DX: B35.1 Tinea unguium (principal); I87.2 Venous insufficiency (chronic) (peripheral); L84 Corns and callosities; R60.0 Localized edema; M79.675 Pain in left toe(s); M79.674 Pain in right toe(s); R26.89 Other abnormalities of gait and mobility; E11.9 Type 2 diabetes mellitus without complications; Z79.84 Long term (current) use of oral hypoglycemic drugs | CPT/HCPCS: G0463 ==